=== PATIENT | female | born 2000 | race Caucasian/White ===

== ENCOUNTER 2022-12-08 17:07 | Emergency (ER) | payer OTHER ==
[~2022-12-08] VITALS: Ht 160 cm; Wt 94.3 kg
[2022-12-08 17:08] VITALS: BP 137/81
[2022-12-08] MEDS ORDERED: PROZ40CA PO (17:22)
[2022-12-08] MEDS ORDERED: ACETAMINOPHEN 500 MG TAB PO ONE (19:35)
[2022-12-08] MEDS ORDERED: NS 1,000 ML IV ONE (19:35)
[2022-12-08] MEDS ORDERED: diphenhydrAMINE 50MG/ML VIAL IV ONE (19:35)
[2022-12-08] MEDS ORDERED: ONDANSETRON 4MG 2ML VIAL IV ONE (19:35)
[2022-12-08 20:25] LABS: BASO % 0.5 % (0.0-1.0); EOS # 0.2 10^3/uL (0.0-0.5); EOS % 2.9 % (0.0-3.0); HEMOGLOBIN 14.3 g/dl (12.0-15.5); LYMPH # 1.7 10^3/uL (1.5-5.0); LYMPH % 22.3 % (24.0-44.0); MEAN CORPUSCULAR HEMOGLOBIN 29.6 pg (27.0-33.0); MEAN CORPUSCULAR HGB CONC 33.3 g/dl (32.0-36.5); MONO # 0.6 10^3/uL (0.0-0.8); MONO % 8.2 % (2.0-8.0); NEUTROPHILS # 4.9 10^3/uL (1.5-8.5); NEUTROPHILS % 65.7 % (36.0-66.0); PLATELET COUNT, AUTOMATED 296 10^3/uL (150-450); RED BLOOD COUNT 4.83 10^6/uL (4.00-5.40); WHITE BLOOD COUNT 7.5 10^3/uL (4.0-10.0)
[2022-12-08 20:34] LABS: BLOOD UREA NITROGEN 11 MG/DL (9-23); CALCIUM LEVEL 8.6 MG/DL (8.5-10.1); CARBON DIOXIDE LEVEL 26 MMOL/L (20-31); CHLORIDE LEVEL 105 MMOL/L (98-107); CREATININE FOR GFR 0.59 MG/DL (0.55-1.30); GLOMERULAR FILTRATION RATE > 60.0 (>60); GLUCOSE, FASTING 88 MG/DL (60-100); POTASSIUM SERUM 3.8 MMOL/L (3.5-5.1); SODIUM LEVEL 138 MMOL/L (136-145)
[2022-12-08] MEDS ORDERED: PSEU120T19 PO (22:26)
[2022-12-08] MEDS ORDERED: PRED20TA PO (22:26)
== END 2022-12-08 22:47 | disposition home or self-care (01) ==
LOC: M ED 17:07
DX: H65.03 Acute serous otitis media, bilateral (principal); R51.9 Headache, unspecified; F10.10 Alcohol abuse, uncomplicated; Z88.6 Allergy status to analgesic agent; Z79.52 Long term (current) use of systemic steroids; Z79.899 Other long term (current) drug therapy
CPT/HCPCS: 70450; 80048; 84702; 85025; 86618; 87486; 87581; 87633; 87798; 96361; 96374; 96375; 99283; J1100; J1200; J2405

== ENCOUNTER 2023-03-23 14:39 | Emergency (ER) | payer OTHER ==
[~2023-03-23] VITALS: Ht 160 cm; Wt 95.9 kg
[~2023-03-23 14:39] MED LIST: PRED20TA PO; PROZ40CA PO; PSEU120T19 PO
[2023-03-23] MEDS ORDERED: ATOR40TA75 (15:06)
[2023-03-23] MEDS ORDERED: ASPI-255 (15:06)
[2023-03-23] MEDS ORDERED: ISOVUE-370 76% 100ML VIAL As Ordered ONE (18:19)
[2023-03-23 18:33] LABS: BASO % 0.3 % (0.0-1.0); EOS # 0.4 10^3/uL (0.0-0.5); EOS % 3.7 % (0.0-3.0); HEMATOCRIT 42.4 % (36.0-47.0); HEMOGLOBIN 13.6 g/dl (12.0-15.5); LYMPH # 2.6 10^3/uL (1.5-5.0); LYMPH % 27.1 % (24.0-44.0); MEAN CORPUSCULAR HEMOGLOBIN 29.5 pg (27.0-33.0); MEAN CORPUSCULAR HGB CONC 32.1 g/dl (32.0-36.5); MONO # 0.6 10^3/uL (0.0-0.8); MONO % 5.9 % (2.0-8.0); NEUTROPHILS % 62.7 % (36.0-66.0); PLATELET COUNT, AUTOMATED 293 10^3/uL (150-450); RED BLOOD COUNT 4.61 10^6/uL (4.00-5.40); WHITE BLOOD COUNT 9.6 10^3/uL (4.0-10.0)
[2023-03-23 18:45] LABS: INR 0.93; PROTHROMBIN TIME 12.7 SECONDS (12.5-14.5)
[2023-03-23 18:46] LABS: PARTIAL THROMBOPLASTIN TIME 30.6 SECONDS (24.8-34.2)
[2023-03-23 19:07] LABS: BLOOD UREA NITROGEN 9 MG/DL (9-23); CALCIUM LEVEL 8.9 MG/DL (8.5-10.1); CARBON DIOXIDE LEVEL 28 MMOL/L (20-31); CHLORIDE LEVEL 106 MMOL/L (98-107); CREATININE FOR GFR 0.61 MG/DL (0.55-1.30); GLOMERULAR FILTRATION RATE > 60.0 (>60); GLUCOSE, FASTING 76 MG/DL (60-100); SODIUM LEVEL 139 MMOL/L (136-145)
[2023-03-23 19:35] LABS: CK-MB VALUE MASS < 1.0 NG/ML (<3.6)
[2023-03-23 19:36] LABS: CPK CREATINE PHOSPHOKINASE 55 U/L (34-145); MB/CK RELATIVE INDEX 1.81 (< OR =4)
[2023-03-23] MEDS ORDERED: MED REC CURRENTLY UNOBTAINABLE XX SCH (19:50)
[2023-03-23 20:09] LABS: ERYTHROCYTE SEDIMENTATION RATE 40 mm/hr (0-20)
[2023-03-23] MEDS ORDERED: ACETAMINOPHEN TAB 650MG DOSE (2X325MG) PO ONE (20:55)
[2023-03-23] MEDS ORDERED: AMITRIPTYLINE 10MG TABLET PO SCH (21:00)
[2023-03-23] MEDS ORDERED: ASPI-527 PO (21:40)
[2023-03-23] MEDS ORDERED: ATOR40TA75 PO (21:40)
[2023-03-23] MEDS ORDERED: HOME MED LIST COMPLETE! XX SCH (21:45)
[2023-03-23 22:28] VITALS: BP 153/86; TEMP 98.2; O2SAT 98
[2023-03-23 22:28] LABS: RSV AMPLIFICATION NEGATIVE (NEGATIVE)
[2023-03-24 11:35] LABS: DRVV SCREEN 33.8 SEC
[2023-03-24 11:42] LABS: PTT LUPUS TYPE ANTICOAG SCREEN 0.9 (0-1.2)
== END 2023-03-23 22:30 | disposition short-term general hospital (02) ==
LOC: M ED 14:39
DX: I63.81 Other cerebral infarction due to occlusion or stenosis of small artery (principal); G43.909 Migraine, unspecified, not intractable, without status migrainosus; Z86.79 Personal history of other diseases of the circulatory system; Z88.8 Allergy status to other drugs, medicaments and biological substances; Z79.02 Long term (current) use of antithrombotics/antiplatelets; Z79.82 Long term (current) use of aspirin
CPT/HCPCS: 36415; 70450; 70496; 70498; 70551; 80048; 81240; 82550; 82553; 84311; 84484; 84702; 85025; 85300; 85301; 85303; 85305; 85610; 85652; 85730; 86140; 86147; 87631; 93005; 93041; 94760; 99285; Q9967

== ENCOUNTER 2023-09-24 15:03 | Outpatient (CLI) | payer OTHER ==
[~2023-09-24] VITALS: Ht 160 cm; Wt 99.2 kg
[~2023-09-24 15:03] MED LIST changes: +ASPI-255; +ASPI-527 PO; +ATOR40TA75; +ATOR40TA75 PO
[2023-09-24] MEDS ORDERED: FAMO20TA PO (15:28)
[2023-09-24] MEDS ORDERED: PRENTAB9 PO (15:28)
[2023-09-24 15:30] VITALS: BP 132/77
[2023-09-24] MEDS ORDERED: HOME MED LIST COMPLETE! XX SCH (15:30)
[2023-09-24] MEDS ORDERED: FLUCONAZOLE 50MG TABLET PO ONE (16:55)
== END 2023-09-24 17:30 | disposition home or self-care (01) ==
LOC: M LDO 15:03
PROVIDERS: ATTEND Obstetrics & Gynecology
DX: O26.893 Other specified pregnancy related conditions, third trimester (principal); R10.2 Pelvic and perineal pain; Z3A.28 28 weeks gestation of pregnancy; O23.593 Infection of other part of genital tract in pregnancy, third trimester
CPT/HCPCS: 59025; 81001; G0463

== ENCOUNTER → 2025-06-27 | Outpatient (CLI) | payer OTHER ==
[~2025-06-27] MED LIST changes: +FAMO20TA PO; +PRENTAB9 PO
[2025-06-27 13:51] LABS: PLATELET COUNT, AUTOMATED 260 10^3/uL (150-450)
[2025-06-27 13:56] LABS: LDH LACTATE DEHYDROGENASE 128 U/L (120-246)
[2025-06-27 13:57] LABS: ALT/SGPT 19 U/L (7.0-40); AST/SGOT 15 U/L (<34); CREATININE FOR GFR 0.49 MG/DL (0.55-1.30); GLOMERULAR FILTRATION RATE > 90.0 (>60)
[2025-06-27 14:21] LABS: TOTAL PROTEIN,RANDOM URINE 9.2 MG/DL (0.0-14.0)
[2025-06-27 14:29] LABS: HIV 1&2 SCREEN NEGATIVE (NEGATIVE)
[2025-06-27 14:38] LABS: HEPATITIS C VIRUS ABY INDEX < 0.02 INDEX (<0.8)
[2025-06-27 22:25] LABS: Trichomonas vaginalis (AMP) NOT DETECTED (NEGATIVE)
[2025-06-27 22:49] LABS: GC DNA AMPLIFICATION NEGATIVE (NEGATIVE)
== END ==
LOC: M PLALAB 09:26
PROVIDERS: ATTEND Nurse Practitioner Family
DX: Z34.81 Encounter for supervision of other normal pregnancy, first trimester (principal)

== ENCOUNTER → 2025-07-26 | Outpatient (CLI) | payer OTHER | LOC: M PLALAB 11:22 | PROVIDERS: ATTEND Obstetrics & Gynecology | DX: Z34.80 Encounter for supervision of other normal pregnancy, unspecified trimester (principal) ==